=== PATIENT | male | born 2000 | race Two or more races ===

== ENCOUNTER 2024-01-19 20:22 | Emergency (ER) | payer MEDICAID, OTHER ==
[~2024-01-19] VITALS: Ht 167.6 cm; Wt 69.3 kg
[2024-01-19 20:30] VITALS: BP 138/78; PULSE 73; RESP 18; TEMP 97.6; O2SAT 98
[2024-01-19] MEDS: LIDOCAINE 1% HCL (LOCAL ANESTH.) INJ 20ML MDV ID ONE (22:15)
[2024-01-20] MEDS ORDERED: AUG875T PO (00:40)
== END 2024-01-20 00:55 | disposition home or self-care (01) ==
LOC: ER 20:22
DX: S51.812A Laceration without foreign body of left forearm, initial encounter (principal); W26.8XXA Contact with other sharp object(s), not elsewhere classified, initial encounter; Y93.89 Activity, other specified; Y92.89 Other specified places as the place of occurrence of the external cause; Y99.8 Other external cause status
CPT/HCPCS: 12001; 73090; J2001